=== PATIENT | female | born 1940 ===

== ENCOUNTER 2022-01-16 08:38 | Outpatient (CLI) | payer MEDICARE | END 2022-01-16 23:59 | disposition home or self-care (01) | LOC: RAD 08:38 | PROVIDERS: ATTEND Nurse Practitioner Family | DX: R42 Dizziness and giddiness (principal); F44.89 Other dissociative and conversion disorders | CPT/HCPCS: 95819 ==

== ENCOUNTER 2022-01-17 14:46 | Emergency (ER) | payer MEDICARE ==
[~2022-01-17] VITALS: Ht 157.5 cm; Wt 39.6 kg
--- NOTE | 2022-01-17 15:11 | NUR ---
provider at bedside.
[2022-01-17] MEDS ORDERED: normal saline 1000ML IV soln IVB ONE (15:15)
[2022-01-17 15:45] LABS: BASOPHILS % (AUTO) 0.3 % (0-1); CHLORIDE 106 MMOL/L (99-107); EOSINOPHILS # (AUTO) 0.1 X10'3 (0-0.9); EOSINOPHILS % (AUTO) 1.2 % (0-6); GLUCOSE 81 MG/DL (70-104); HEMATOCRIT 36.9 % (35.0-45.0); HEMOGLOBIN 12.6 g/dl (12.0-16.0); LYMPHOCYTES # (AUTO) 1.4 X10'3 (1.1-4.8); LYMPHOCYTES % (AUTO) 24.3 % (21-51); MEAN CORPUSCULAR HEMOGLOBIN 32.3 PG (27.0-31.0); MEAN CORPUSCULAR HGB CONC 34.1 g/dL (33.0-36.5); MEAN CORPUSCULAR VOLUME 94.7 FL (78-98); MEAN PLATELET VOLUME 7.7 FL (7.4-10.4); MONOCYTES # (AUTO) 0.5 X10'3 (0-0.9); MONOCYTES % (AUTO) 9.4 % (2-12); NEUTROPHILS # (AUTO) 3.7 X10'3 (1.8-7.7); NEUTROPHILS % (AUTO) 64.8 % (42-75); PLATELET COUNT 180 X10'3 (140-440); POTASSIUM 3.4 MMOL/L (3.5-5.1); RED CELL DISTRIBUTION WIDTH 14.3 % (11.5-14.5); SODIUM 141 MMOL/L (135-145); TOTAL CARBON DIOXIDE 26.3 MMOL/L (24-32); WHITE BLOOD COUNT 5.8 X10'3 (4.5-11.0)
[2022-01-17 15:46] LABS: ALANINE AMINOTRANSFERASE 16 U/L (12-78); ALBUMIN 3.6 G/DL (3.4-5.0); ALBUMIN/GLOBULIN RATIO 1.3 (1.1-1.5); ALKALINE PHOSPHATASE 80 IU/L (46-116); ANION GAP 9 (8-16); ASPARTATE AMINO TRANSFERASE 17 U/L (10-37); BILIRUBIN,TOTAL 0.5 MG/DL (0.1-1.0); BLOOD UREA NITROGEN 18 MG/DL (7-18); BUN/CREATININE RATIO 31.6 (6.6-38.0); CALCIUM 8.9 MG/DL (8.5-10.1); CREATININE 0.57 MG/DL (0.40-0.90); TOTAL PROTEIN 6.3 G/DL (6.4-8.2); eGFR > 90 ML/MIN
[2022-01-17 16:25] VITALS: BP 126/64
== END 2022-01-17 16:31 | disposition home or self-care (01) ==
LOC: ER 14:47
DX: R53.1 Weakness (principal); R41.0 Disorientation, unspecified; R42 Dizziness and giddiness; R29.6 Repeated falls
CPT/HCPCS: 36415; 71045; 80053; 82948; 83880; 84484; 85025; 93005; 96360; 99285; J7030